=== PATIENT | female | born 1995 | race Caucasian/White ===

== ENCOUNTER 2019-05-04 12:28 | Outpatient (CLI) | payer OTHER, SELFPAY ==
[2019-05-04 12:51] LABS: Basophils Percent Auto 0.4 % (0.2-1.2); Eosinophils Absolute Auto 0.1 K/mm3 (0-0.3); Eosinophils Percent Auto 1.2 % (0-4.4); Hematocrit 43.8 % (37.0-47.0); Hemoglobin 14.4 g/dL (12.0-15.0); Immature Granulocyte Absolute 0.02 K/mm3 (0.00-0.031); Immature Granulocyte Percent A 0.3 % (0-0.5); Lymphocytes Absolute Auto 2.36 K/mm3 (0.9-3.2); Lymphocytes Percent Auto 34.7 % (18.3-44.2); Mean Corpuscular HGB Conc 32.9 g/dl (32-36); Mean Corpuscular Hemoglobin 29.1 pg (26-34); Mean Corpuscular Volume 88.5 fl (80-100); Mean Platelet Volume 10.2 fl (7.4-10.4); Monocytes Absolute Auto 0.3 K/mm3 (0.1-0.6); Monocytes Percent Auto 4.9 % (2.6-8.5); Neutrophils Percent Auto 58.5 % (45.5-73.1); Platelet Count Result 324 k/mm3 (150-375); Red Blood Count 4.95 M/mm3 (4.2-5.4); Red Cell Distribution Width 12.3 % (11.5-14.5); White Blood Count 6.8 K/mm3 (4.5-10.0)
[2019-05-04 13:05] LABS: Alanine Aminotransferase 15 U/L (4-35); Albumin Level 4.5 g/dL (3.5-5.1); Alkaline Phosphatase 77 U/L (38-126); Aspartate Amino Transferase 24 U/L (14-36); Bilirubin,Total 0.6 mg/dL (0.2-1.3); Blood Urea Nitrogen 10 mg/dL (7-17); Calcium 9.3 mg/dL (8.4-10.2); Carbon Dioxide 28 mmol/L (22-30); Chloride 101 mmol/L (98-107); Estimated Glomerular Filt Rate > 60; Glucose 77 mg/dL (65-105); Potassium 3.8 mmol/L (3.4-5.0); Sodium 136 mmol/L (137-145)
== END 2019-05-04 12:29 | disposition home or self-care (01) ==
PROVIDERS: PCP Family Medicine; Visit Provider Family Medicine
DX: R53.83 Other fatigue (principal)
CPT/HCPCS: 36415; 80053; 82607; 84443; 85025

== ENCOUNTER 2019-11-23 07:32 | Outpatient (CLI) | payer OTHER, SELFPAY ==
[2019-11-23 08:04] LABS: Basophils Percent Auto 0.4 % (0.2-1.2); Eosinophils Absolute Auto 0.1 K/mm3 (0-0.3); Eosinophils Percent Auto 0.7 % (0-4.4); Hematocrit 37.4 % (37.0-47.0); Hemoglobin 12.9 g/dL (12.0-15.0); Immature Granulocyte Absolute 0.02 K/mm3 (0.00-0.031); Immature Granulocyte Percent A 0.2 % (0-0.5); Lymphocytes Absolute Auto 2.42 K/mm3 (0.9-3.2); Lymphocytes Percent Auto 29.2 % (18.3-44.2); Mean Corpuscular HGB Conc 34.5 g/dl (32-36); Mean Corpuscular Hemoglobin 29.5 pg (26-34); Mean Corpuscular Volume 85.4 fl (80-100); Mean Platelet Volume 9.9 fl (7.4-10.4); Monocytes Absolute Auto 0.5 K/mm3 (0.1-0.6); Monocytes Percent Auto 5.8 % (2.6-8.5); Neutrophils Absolute Auto 5.3 K/mm3 (1.3-6.7); Neutrophils Percent Auto 63.7 % (45.5-73.1); Platelet Count Result 265 k/mm3 (150-375); Red Blood Count 4.38 M/mm3 (4.2-5.4); Red Cell Distribution Width 12.4 % (11.5-14.5); White Blood Count 8.3 K/mm3 (4.5-10.0)
[2019-11-23 08:58] LABS: HIV 1/2 Ab P24 Ag Result Negative (Negative)
[2019-11-23 09:11] LABS: Hepatitis B Surface Antigen Negative (Negative); Rubella IgG Antibody 66.2 IU/ML
[2019-11-23 09:26] LABS: Hepatitis C Virus Antibody Negative (Negative)
[2019-11-24 10:14] LABS: Rapid Plasma Reagin Non-Reactive (NonReactive)
== END 2019-11-23 07:33 | disposition home or self-care (01) ==
PROVIDERS: PCP Family Medicine; Visit Provider Obstetrics & Gynecology
DX: Z34.90 Encounter for supervision of normal pregnancy, unspecified, unspecified trimester (principal); Z3A.00 Weeks of gestation of pregnancy not specified
CPT/HCPCS: 36415; 85025; 86592; 86703; 86762; 86803; 86850; 86900; 86901; 87340; G0432

== ENCOUNTER 2019-11-24 17:14 | Outpatient (CLI) | payer OTHER, SELFPAY ==
--- NOTE | ~2019-11-24 | US_ITS ---
EXAMINATION: US OB <=14 wk fetus w TV EXAM DATE: 11/24/2019 17:55 INDICATION: For dating and viability. 1st trimester. TECHNIQUE: Pelvic obstetrical transabdominal and transvaginal sonogram was performed by a technologi . There are multiple grayscale and Doppler images available for interpretation. There are no julia ier studies of this gestation for comparison. FINDINGS: Uterus measures 9.9 x 5.7 x 6.7 cm. There is intrauterine gestation sac. pole with heart rate confirmed at 155 beats per minute. The 1.4 cm crown-rump length corresponds to estimated gestational age by ultrasound of 7 weeks 5 days. Yolk sac is identified. There is no sonographic e vidence of subchorionic hemorrhage. Right ovary morphologically normal, left not identified. IMPRESSION: 1. Live intrauterine gestation, age by ultrasound 7 weeks 5 days. Reviewed, dictated and finalized at location B.
== END 2019-11-24 17:15 | disposition home or self-care (01) ==
PROVIDERS: PCP Family Medicine; Visit Provider Obstetrics & Gynecology
DX: O26.841 Uterine size-date discrepancy, first trimester (principal); Z3A.01 Less than 8 weeks gestation of pregnancy
CPT/HCPCS: 76801; 76817

== ENCOUNTER 2020-03-16 12:36 | Outpatient (CLI) | payer MEDICAID, SELFPAY ==
--- NOTE | ~2020-03-16 | US_ITS ---
US OB /maternal detail DATE: 03/16/2020 13:33 INDICATION: Routine annual screening for chromosomal abnormalities TECHNIQUE: Real-time imaging and Doppler analysis COMPARISON: 11/24/2019 obstetrical ultrasound FINDINGS: Live [place] intrauterine gestation, fetus in longitudinal lie, vertex presentation. Plac enta is anterior. There is a subjectively normal amount of amniotic fluid. Nuchal fold appears normal. No cerebral ventriculomegaly. The cerebellum appears normal. facial profile appears normal. The spine appears unremarkable. The diaphragm appears intact. heart rate of 144 bpm. 4 chamber heart. The heart outflow tracts appear normal. Fluid is demonstrated in the stomach and urinary bladder. No evidence of hydronephr osis. Three-vessel umbilical cord with normal appearing insertion at abdominal wall. The extremities are visualized. male external genitalia. Biparietal diameter 6.13 cm; 24 weeks 6 days estimated gestational age Head circumference 22.51 cm; 24 weeks 4 days Abdominal circumference 18.41 cm; 23 weeks 2 days Femur length 3.78 cm; 22 weeks 1 day Composite age by have a foraminal based upon these measurements would be 23 weeks 5 days +/- 1 week 5 days; AZAM would be 07/08/2020, compared to 07/03/2020 by LMP. Estimated weight is 552.9 +/- 82.9 g. Femur length/BPD 61.76, below normal range of 71.0-87.0 Head circumference/abdominal circumference 1.22, slightly above normal range of 1.05, 1.21 Femur length/abdominal director of product marketing was 20.56, within normal range of 20.00-24.00 Femur length/head circumference 16.81, below normal range of 18.84-20.87. IMPRESSION: Normal anatomy screen Reviewed, dictated and finalized at Location A. Reviewed, dictated and finalized at location A. OGRAPHIC EQUIPMENT MECHANIC IMPRESSION: Normal anatomy screen
== END 2020-03-16 12:37 | disposition home or self-care (01) ==
PROVIDERS: PCP Family Medicine; Visit Provider Obstetrics & Gynecology
DX: Z36.0 Encounter for antenatal screening for chromosomal anomalies (principal)
CPT/HCPCS: 76805

== ENCOUNTER 2020-05-03 11:48 | Outpatient (CLI) | payer OTHER, SELFPAY ==
[2020-05-03 18:36] LABS: Hematocrit 35.6 % (37.0-47.0); Hemoglobin 11.7 g/dL (12.0-15.0); Mean Corpuscular HGB Conc 32.9 g/dl (32-36); Mean Corpuscular Hemoglobin 29.4 pg (26-34); Mean Corpuscular Volume 89.4 fl (80-100); Mean Platelet Volume 10.5 fl (7.4-10.4); Platelet Count Result 230 k/mm3 (150-375); Red Blood Count 3.98 M/mm3 (4.2-5.4); Red Cell Distribution Width 13.6 % (11.5-14.5); White Blood Count 10.4 K/mm3 (4.5-10.0)
[2020-05-03 18:50] LABS: Glucose 1 Hour PP 50gm Dose 102 mg/dL
[2020-05-03 19:31] LABS: HIV 1/2 Ab P24 Ag Result Negative (Negative)
== END 2020-05-03 11:49 | disposition home or self-care (01) ==
LOC: ANHBWCLAB 11:53
PROVIDERS: Visit Provider Obstetrics & Gynecology
DX: Z34.90 Encounter for supervision of normal pregnancy, unspecified, unspecified trimester (principal); Z3A.00 Weeks of gestation of pregnancy not specified
CPT/HCPCS: 36415; 82947; 85027; 86703; G0432

== ENCOUNTER 2020-05-15 09:37 | Outpatient (CLI) | payer OTHER, SELFPAY ==
--- NOTE | ~2020-05-15 | US_ITS ---
EXAMINATION: US OB follow up EXAM DATE: 05/15/2020 10:04 INDICATION: growth. 3rd trimester. TECHNIQUE: Pelvic obstetrical transabdominal sonogram was performed by a technologist. There are mu ltiple grayscale and Doppler images available for interpretation. Comparison is made to prior examina tion from 03/16/2020. FINDINGS: There is a single fetus identified in vertex presentation with a heart rate of 141 beats pe r minute. The placenta is located in the anterior position. There is no sonographic evidence of retr oplacental hemorrhage identified. The amniotic fluid index is 10.5 centimeters, which is normal. BIOMETRIC DATA: Biparietal diameter (BPD): 8.0 cm ----------------> 32 weeks 1 day. Head circumference (HC): 29.2 cm ----------------> 32 weeks 1 day. Abdominal circumference (AC): 27.2 cm ----------> 31 weeks 2 days. Femur length (FL): 6.1 cm --------------------------> 31 weeks 5 days. These measurements are concordant. HC/AC ratio is 1.07 (The 5th -- 95th percentile range is 0.6-1.14. Estimated weight is 1790 g +/- 268 g. This is the 9th percentile when the currently reported c linical gestation age 33 weeks 0 days, clinical estimated date of delivery (AZAM-OPE) 07/03/20 is used. estimated gestational age based on measurements from this exam is 31 weeks 6 days, with an est imated date of delivery (AZAM-AUA) 07/11. weight percentile has increased from 3.5% on prior stud y. IMPRESSION: 1. Single fetus in vertex presentation with heart rate 141 beats per minute. 2. Estimated weight of 1790 grams, 9th percentile using the currently reported clinical gestat ion age of 33 weeks 0 days, AZAM(OPE) 07/03. 3. Normal CLAUDIA 10.5 cm. Reviewed, dictated and finalized at location A. IMPRESSION: 1. Single fetus in vertex presentation with heart rate 141 beats per minute. 2. Estimated weight of 1790 grams, 9th percentile using the currently re ported clinical gestation age of 33 weeks 0 days, AZAM(OPE) 07/03. 3. Normal CLAUDIA 10.5 cm.
== END 2020-05-15 09:38 | disposition home or self-care (01) ==
PROVIDERS: Visit Provider Obstetrics & Gynecology
DX: O36.60X0 Maternal care for excessive fetal growth, unspecified trimester, not applicable or unspecified (principal); Z3A.33 33 weeks gestation of pregnancy
CPT/HCPCS: 76816

== ENCOUNTER 2020-06-12 09:50 | Outpatient (CLI) | payer OTHER, SELFPAY ==
--- NOTE | ~2020-06-12 | US_ITS ---
EXAMINATION: US OB follow up DATE: 06/12/2020 10:44 INDICATION: Follow-up growth and amniotic fluid index. TECHNIQUE: Real-time transabdominal obstetric ultrasound. FINDINGS: Ultrasound dated 05/15/2020, 03/16/2020 and 11/24/2019 There is a single living fetus in vertex presentation. The placenta is anterior without placenta pre via. cardiac activity and movement is noted with a heart rate of 161 beats per minute. T he amniotic fluid volume is normal. CLAUDIA measures 9.7 cm (normal range for gestational age is 7.5-24.4 cm). The following biometric data were obtained: BPD: 91mm corresponds to gestational age 36 weeks 6 days. Head circumference: 324mm corresponds to gestational age 36 weeks 4 days. Abdominal circumference: 334mm corresponds to gestational age 37 weeks 2 days. Femur length: 72mm corresponds to gestational age 36 weeks 4 days. Estimated weight: 3084grams +/- 462grams.] IMPRESSION: 1. Single living intrauterine in vertex presentation with an estimated gestational age of 36 weeks 3 days by inititial ultrasound. EDC by initial ultrasound is 07/07/2020. Appropriate interval growth. 2. Normal placenta. Reviewed, dictated and finalized at location B. IMPRESSION: 1. Single living intrauterine in vertex presentation with an estimat ed gestational age of 36 weeks 3 days by inititial ultrasound. EDC by initial u ltrasound is 07/07/2020. Appropriate interval growth. 2. Normal placenta.
== END 2020-06-12 09:51 | disposition home or self-care (01) ==
PROVIDERS: Visit Provider Obstetrics & Gynecology
DX: O36.5990 Maternal care for other known or suspected poor fetal growth, unspecified trimester, not applicable or unspecified (principal); Z3A.36 36 weeks gestation of pregnancy
CPT/HCPCS: 76816

== ENCOUNTER 2020-06-30 | Inpatient (IN) | payer OTHER, SELFPAY ==
[2020-06-30] VITALS (194 sets, daily range): BP systolic 90–139; BP diastolic 49–95; PULSE 32–119; RESP 16–20; TEMP 36.3–37.7; O2SAT 80–100
--- NOTE | 2020-06-30 00:29 | LDADM ---
This patient, Mary Torres, was admitted to Labor/Delivery/Recovery 104 on 06/30/20 at 00:00. Plans for labor, pain management and were discussed with patient. Patient/family oriented to hospital policies and general routines including ID bracelet, bed and alarms, visiting hours, pain management, procedures, bathroom and other care routines, personal items, smoking policy, room service/diet and guest tray routines, infant security routines, and visiting hours. Patient/Family are encouraged to report perceived risks to care and to ask questions if they do not understand what they are told or what they should do. See OBIX for further documentation.
[2020-06-30 00:32] LABS: Basophils Percent Auto 0.4 % (0.2-1.2); Eosinophils Absolute Auto 0.1 K/mm3 (0-0.3); Eosinophils Percent Auto 0.9 % (0-4.4); Hematocrit 34.3 % (37.0-47.0); Lymphocytes Percent Auto 19.6 % (18.3-44.2); Mean Corpuscular HGB Conc 32.1 g/dl (32-36); Mean Corpuscular Hemoglobin 26.8 pg (26-34); Mean Corpuscular Volume 83.5 fl (80-100); Mean Platelet Volume 10.7 fl (7.4-10.4); Monocytes Absolute Auto 0.5 K/mm3 (0.1-0.6); Monocytes Percent Auto 5.6 % (2.6-8.5); Neutrophils Percent Auto 72.5 % (45.5-73.1); Platelet Count Result 227 k/mm3 (150-375); Red Blood Count 4.11 M/mm3 (4.2-5.4); Red Cell Distribution Width 14.7 % (11.5-14.5); White Blood Count 9.7 K/mm3 (4.5-10.0)
[2020-06-30] MEDS: LACTATED RINGERS 1,000 ML 125 ML IV CONT (01:29)
[2020-06-30] MEDS: OXYTOCIN 30 UNITS/NS 500 ML 30 UNITS/500 ML BAG IV CONT (01:30)
--- NOTE | 2020-06-30 06:24 | WPDANESEPP ---
Anes - Eval Pre Procedure Procedure: labor epidural Date/Time: 06/30/20 06:24 Surgeon: adi Preop Diagnosis: pain during labor Pre Op Diagnosis: Induction of Labor Patient Data Age: 25 Gender: F Height: 1.63 m Weight: 79.5 kg Last Vital Signs Temp 36.5 C 06/30/20 03:34 Pulse 86 06/30/20 06:00 Resp 20 06/30/20 03:34 BP 132/83 06/30/20 06:00 Allergies Allergy/AdvReac Type Severity Reaction Status Date / Time No Known Allergies Allergy Verified 06/26/20 09:38 Home Medications Medication Instructions Recorded Confirmed Type docosahexaenoic acid 200 mg capsule 200 mg PO DAILY 11/15/19 06/30/20 History Laboratory Tests 06/30/20 06/30/20 06/30/20 00:25 00:25 00:25 WBC 9.7 K/mm3 K/mm3 (4.5-10.0) RBC 4.11 M/mm3 L M/mm3 (4.2-5.4) Hgb 11.0 g/dL L g/dL (12.0-15.0) Hct 34.3 % L % (37.0-47.0) MCV 83.5 fl fl (80-100) MCH 26.8 pg pg (26-34) MCHC 32.1 g/dl g/dl (32-36) RDW 14.7 % H % (11.5-14.5) Plt Count 227 k/mm3 k/mm3 (150-375) MPV 10.7 fl H fl (7.4-10.4) Immature Gran % (Auto) 1.0 % H % (0-0.5) Neut % (Auto) 72.5 % % (45.5-73.1) Lymph % (Auto) 19.6 % % (18.3-44.2) [place] % (Auto) 5.6 % % (2.6-8.5) Eos % (Auto) 0.9 % % (0-4.4) Baso % (Auto) 0.4 % % (0.2-1.2) Lymph # (Auto) 1.90 K/mm3 K/mm3 (0.9-3.2) [place] # (Auto) 0.5 K/mm3 K/mm3 (0.1-0.6) Eos # (Auto) 0.1 K/mm3 K/mm3 (0-0.3) Baso # (Auto) 0.0 K/mm3 K/mm3 (0.0-0.1) Abs Immat Gran (auto) 0.10 K/mm3 H K/mm3 (0.00-0.031) Absolute Neuts (auto) 7.0 K/mm3 H K/mm3 (1.3-6.7) Absolute Nucleated RBC 0.0 K/mm3 K/mm3 (0.0-0.012) Nucleated RBC % 0.0 % % (0.0-0.2) RPR Pending Blood Type A Positive Antibody Screen Negative Patient hx anesthesia problems: none Family hx anesthesia problems: none PMFSH Past Medical History Medical History (Updated 06/30/20 @ 06:25 by Maggie Iyer CRNA) IBS (irritable bowel syndrome) IUP (intrauterine ), incidental Family History Family History Grandparent Family history of atrial fibrillation History of blood clots grandmother Diabetes mellitus grandmother Acute myocardial infarction grandmother Hypertension grandmother Hypercholesteremia grandmother Cerebrovascular accident grandmother Mother History of blood clots Social History Social History Smoking status: Never smoker Second hand tobacco smoke exposure: No Alcohol intake: never Substance use: never Gender identity (if verbalized by the patient): Female Spiritual care concerns: No Exam Day of Procedure 06/30/20 06:24
[2020-06-30] MEDS: fentaNYL CITRATE INJ (*CRX) 100 MCG/2 ML VIAL IV PUSH (07:40)
--- NOTE | 2020-06-30 08:11 | WPDOBADMIT ---
Obstetrics - Admit Note Admission Note: record reviewed. No pertinent additions to the history and/or any subsequent changes in the physical findings that are not consistent with the expected course of the were found. Additions to the history and/or subsequent changes in the physical findings follow. G1 at 39 weeks for elective induction of labor. Cervix 2/60/-1. AROM with clear fluid and IUPC placed easily. Continue pitocin. GBS negative.
[2020-06-30] MEDS: LACTATED RINGERS 1,000 ML 999 ML IV CONT ×3 (08:13→14:00)
[2020-06-30 12:33] LABS: Rapid Plasma Reagin Non-Reactive (NonReactive)
[2020-06-30] MEDS: ONDANSETRON INJ 4 MG/2 ML VIAL IV PUSH (14:05)
[2020-06-30] MEDS: SODIUM CHLORIDE 0.9% IV 300 ML 600 ML I-UTERINE (16:32)
--- NOTE | 2020-06-30 18:11 | P.PCNOB_ITS ---
OB - Delivery Note Procedure Delivery date: 06/30/20 Procedure: events: Labor Induction Induction method: per pitocin protocol Delivery augmentation: rupture of membranes Delivery monitor: external FHT and internal uterine Route of delivery: Laceration Description: Perineal - 2nd Degree and Vaginal - 1st Degree (right) Delivery repair: vicryl (3-0) Specimen: No Quantitative Blood Loss (ml): 114 Anesthesia type: Local Disposition: floor [place] Baby Date of : 06/30/20 Time of : 17:46 Weeks of gestation at delivery: 39 Infant gender: Male Weight (pounds): 7 Weight (ounces): 12 presentation: vertex position: Right Occiput Anterior Placenta delivery description: Spontaneous cord vessel description: 3 Vessels and Clamped/Cut score one minute: 8 score five minutes: 9
[2020-06-30] MEDS: OXYTOCIN 30 UNITS/NS 500 ML 30 UNITS/500 ML BAG 125 UNITS IV CONT (18:23)
[2020-06-30] MEDS: IBUPROFEN 600 MG TABLET PO (18:48)
[2020-06-30] MEDS: BENZOCAINE 20% AER SPR (*SP) 56 GM CAN 1 SPRAY TOPICAL (18:51)
[2020-06-30] MEDS: WITCH HAZEL 40 PADS 1 PAD TOPICAL (18:51)
--- NOTE | 2020-06-30 20:22 | OBPPTRN ---
Patient transferred to post room #290 via wheelchair. Support person present. Oriented to unit, room, information board, rooming in, admission packet and security measures. Patient verbalizes understanding.
[2020-07-01] VITALS: BP 120/64; PULSE 69; RESP 16; TEMP 36.9; O2SAT 99
[2020-07-01 04:00] VITALS: BP 113/66; PULSE 74; RESP 16; TEMP 36.8; O2SAT 99
[2020-07-01 05:56] LABS: Hematocrit 28.4 % (37.0-47.0); Hemoglobin 9.1 g/dL (12.0-15.0)
[2020-07-01 08:30] VITALS: BP 108/79; PULSE 83; RESP 18; TEMP 36.3
[2020-07-01] MEDS: POLYSACCHARIDE IRON COMPLEX 150 MG CAPSULE PO ×2 (09:46→17:29)
[2020-07-01] MEDS: DOCUSATE SODIUM 100 MG CAPSULE PO ×2 (09:46→17:29)
[2020-07-01] MEDS: IBUPROFEN 600 MG TABLET PO (09:47)
[2020-07-01] MEDS: MULTIVIT/MIN/PREN/FOL AC/IRON TABLET 1 TAB PO (09:47)
[2020-07-01] MEDS: DIBUCAINE 1% OINTMENT 30 GM TUBE 1 APPLIC TOPICAL (09:50)
--- NOTE | 2020-07-01 10:12 | WPDANLDPN2 ---
Anes-Prog Note L&D Date/Time: 07/01/20 10:12 Comfortable throughout: labor and delivery Neuraxial method: epidural Epidural/Spinal procedure site: clean & non-tender Neuro status: Neuro function grossly intact. Cardiovascular status: normal Respiratory status: normal Airway patency: baseline Mental status: baseline Post-Op hydration status: normal Vital Signs: Last Vital Signs Temp 36.3 C L 07/01/20 08:30 Pulse 83 07/01/20 08:30 Resp 18 07/01/20 08:30 BP 108/79 07/01/20 08:30 Pulse Ox 99 07/01/20 04:00 Pain score (VAS): 10 I/O: Intake & Output 06/30/20 07/01/20 07/01/20 23:59 07:59 15:59 Intake Total 1500 Output Total 255 Balance 1245 Post-procedural complaints: none Patient feedback: Patient satisfied with anesthetic care.
--- NOTE | 2020-07-01 11:28 | PM.OBPNVD ---
OB - PN: Subj Subjective Date/time seen: 07/01/20 11:28 Patient comments: pain well controlled, tolerating diet and other (Decreasing lochia.) baby status: doing well and nursing well [place] feeding status: exclusively breast feeding OB - PN: Obj Data Labs CBC & Chem 7: 07/01/20 04:22 Labs: Laboratory Results - last 24 hr 06/30/20 07/01/20 00:25 04:22 Hgb 9.1 L Hct 28.4 L RPR Non-reactive OB - PN A/P Plan day: 1 Plan: routine care Comments: Patient doing well. Continue routine care. Time Spent With Patient Time: Total time spent is greater than 50% in coordination of care (as documented) at patient's floor/unit and/or counseling patient: Exam Psych: Affect: normal affect Other: Abd: fundus firm below umbilicus, nontender Perineum: healing Ext: nontender
[2020-07-01 13:00] VITALS: BP 103/70; PULSE 77; RESP 18; TEMP 36.3
[2020-07-01 16:35] VITALS: BP 112/69; PULSE 86; RESP 18; TEMP 36.9
[2020-07-01 19:52] VITALS: BP 117/76; PULSE 86; RESP 18; TEMP 36.9
--- NOTE | 2020-07-02 04:30 | PC.NURSE ---
07/01/2020 at 2200 Patient viewed the discharge video Mother & Baby Care, The First Two Weeks . Patient was given the opportunity and encouraged to ask questions. Patient verbalized understanding of information shared and has been given the mother/baby guide for home reference.
[2020-07-02 07:55] VITALS: BP 119/78; PULSE 83; RESP 18; TEMP 36.4
--- NOTE | 2020-07-02 09:21 | PM.OBPNVD ---
OB - PN: Subj Subjective Date/time seen: 07/02/20 09:21 Patient comments: pain well controlled, tolerating diet and other (Decreasing lochia.) baby status: doing well and nursing well OB - PN: Obj Data Labs CBC & Chem 7: 07/01/20 04:22 OB - PN A/P Plan day: 2 Plan: discharge home and other Comments: Patient doing well. Follow up 4-6 weeks. Discharge instructions provided. Time Spent With Patient Time: Total time spent is greater than 50% in coordination of care (as documented) at patient's floor/unit and/or counseling patient: Time with patient: less than 15 minutes Exam Const: General: comfortable and no acute distress Eyes: General: appearance normal, both eyes and all related structures Resp: Effort & Inspection: normal respiratory effort Psych: Affect: normal affect Other: Abd: fundus firm below umbilicus, nontender Ext: nontender
--- NOTE | 2020-07-02 09:22 | P.DS_ITS ---
DS: Admitting Diagnosis Admitting Diagnosis Admitting Diagnosis: Medical induction of labor. DS: Discharge Diagnosis Discharge Diagnosis (1) Delivery normal: Code(s): O80 - Encounter for full-term uncomplicated delivery Status: Acute OB - DS: Summary OB Procedures : Ultrasound OB Procedures Intrapartum: Spontaneous Vag Delivery OB Procedures: : None Time Spent with Patient Time attestation: Total time spent providing and/or coordinating discharge services: Exam Const: General: no acute distress Eyes: General: appearance normal, both eyes and all related structures Resp: Effort & Inspection: normal respiratory effort Psych: Affect: normal affect Other: Abd: fundus firm below umbilicus, nontender Perineum: healing Ext: nontender DS: Data Procedures/Treatments: Spontaneous vaginal delivery. Additional Comments Additional comments: Patient admitted for medical induction of labor. She had an uncomplicated vaginal delivery. She did well . Asymptomatic anemia. Iron supplementation. Discharge Plan Discharge Attending physician on discharge: Walt Escobedo Consulting providers: Margot Verde Discharging Clinician: Walt Escobedo Anticipated Discharge Date/Time: 07/02/20 09:18 Patient Disposition: Home, Self-Care Activity: may shower, no straining and pelvic rest Diet: regular Discharge Instructions: Take daily vitamins. May take Tylenol or Motrin for pain. Call for fever, saturating more than a pad an hour, leg pain/redness. Take over the counter SloFe once a day. Routine post vaginal delivery precautions. Patient Instructions: Antibiotic Form Stand Alone Forms: General Discharge Information Follow-up/Referrals: Asha Barajas MD [Physician] - Call for Appointment (Follow up in four to six weeks.) Discharge Medications: Continued DHA 200 mg capsule 200 mg PO DAILY RF: 0 Date of admission: 06/30/20 00:00 Primary Care Provider: PHYSICIAN,COMPUTER SYSTEMS TECHNOLOGY INSTRUCTOR Admitting Provider: Asha Barajas Attending physician on admission: Asha Barajas Condition: Stable
[2020-07-03 08:43] VITALS: BP 114/72; PULSE 88; RESP 20; TEMP 37.1; O2SAT 100
== END 2020-07-02 10:10 | disposition home or self-care (01) | DRG 560 ==
LOC: ANHLDR 00:18 → ANHOB2 07-02 09:21 → ANHLDR 07-04 10:51 → ANHOB2 07-04 10:51
PROVIDERS: Admitting Provider Obstetrics & Gynecology; Visit Provider Obstetrics & Gynecology
DX: O99.62 Diseases of the digestive system complicating childbirth (principal); Z37.0 Single live birth; Z3A.39 39 weeks gestation of pregnancy; K58.9 Irritable bowel syndrome, unspecified; O36.8330 Maternal care for abnormalities of the fetal heart rate or rhythm, third trimester, not applicable or unspecified; O70.1 Second degree perineal laceration during delivery
CPT/HCPCS: 36415; 85014; 85018; 85025; 86592; 86850; 86900; 86901; A9270; J2405; J2590; J2795; J3010; J7030; J7120

== ENCOUNTER 2023-03-19 11:48 | Emergency (ER) | payer SELFPAY ==
--- NOTE | ~2023-03-19 | XR_ITS ---
XR foot RT min 3V DATE: 03/19/2023 12:54 INDICATION: Pain at second through fifth metatarsophalangeal areas TECHNIQUE: 4 views COMPARISON: None FINDINGS: No fracture or dislocation, periosteal reaction or bone destruction. Joint spaces are prese rved. IMPRESSION: Negative Reviewed, dictated and finalized at location B. STROPHE CLAIMS SUPERVISOR IMPRESSION: Negative
[2023-03-19 11:55] VITALS: BP 105/64; PULSE 67; RESP 20; TEMP 36.6; O2SAT 100
--- NOTE | 2023-03-19 12:51 | PC.NURSE ---
Pt denied pain medication or ice for comfort.
--- NOTE | 2023-03-19 13:42 | ED.LOWEXIN ---
HPI - Extremity Injury (Lower) General Chief Complaint: Extremity Injury, Lower Stated Complaint: R foot injury Time Seen by Provider: 03/19/23 12:01 History of Present Illness HPI Narrative: Patient is a 27-year-old female who presents ER with right foot pain. She is dancing earlier this week and then cold her toes under her foot under her body weight. She has had pain with walking. No numbness or tingling. No bruising. Has pain with walking. Related Data Allergies Allergy/AdvReac Type Severity Reaction Status Date / Time No Known Allergies Allergy Verified 07/25/20 10:03 Review of Systems Musculoskeletal: Musculoskeletal: Reports no additional musculoskeletal complaints Integumentary/Breasts: Skin/Breast: Reports system reviewed and no additional complaints, except as docu Neurologic: Reports system reviewed and no additional complaints, except as documented PMFSH Past Medical History Medical History IBS (irritable bowel syndrome) IUP (intrauterine ), incidental Vaginal delivery Family History Family History Grandparent Family history of atrial fibrillation History of blood clots grandmother Diabetes mellitus grandmother Acute myocardial infarction grandmother Hypertension grandmother Hypercholesteremia grandmother Cerebrovascular accident grandmother Mother History of blood clots Social History Social History Smoking status: Never smoker Second hand tobacco smoke exposure: No Alcohol intake: never Substance use: never Living arrangements: with family Occupation/Education: occupation Gender identity (if verbalized by the patient): Female Spiritual care concerns: No Exam Narrative: GENERAL: Well-appearing, well-nourished, and in no acute distress. HEAD: Normocephalic, atraumatic. ENT: Mucous membranes moist. HEART: Regular rate and rhythm. Normal peripheral pulses. EXTREMITIES: Normal range of motion. No edema. Tender palpation over MTPs 2. Through 5 of the right foot. She will not flex her toes due to pain. Pain with passive range of motion of the affected toes as well. Sensation intact. SKIN: Warm, dry, no rash. NEURO: Alert and oriented x3. PSYCH: Normal mood and affect. Course Course Emergency Course: Patient resting comfortably. Given Toradol. Informed of imaging results. Placed in postop shoe for comfort. Discharge. Vital Signs Vital signs: Vital Signs Temperature 97.8 F 03/19/23 11:55 Pulse Rate 67 03/19/23 11:55 Respiratory Rate 20 03/19/23 11:55 Blood Pressure 105/64 03/19/23 11:55 Pulse Oximetry 100 03/19/23 11:55 Oxygen Delivery Room Air 03/19/23 11:55 Temperature 97.6 F 03/19/23 13:54 Pulse Rate 60 03/19/23 13:54 Respiratory Rate 16 03/19/23 13:54 Blood Pressure 105/74 03/19/23 13:54 Pulse Oximetry 100 03/19/23 13:54 Oxygen Delivery Room Air 03/19/23 11:55 MDM - Extremity Injury (Lower) Imaging Data Radiologist's impression: ITS Impressions Foot X-Ray 03/19/23 13:06 IMPRESSION: Negative Discharge Plan Discharge Clinical Impression: Sprain of toe Patient Disposition: Home, Self-Care Condition: Stable Instructions: Sprain (ED) Additional Instructions: Wear the postop shoe for comfort. You may take it off when he can not bear weight without pain. Take naproxen for pain. Return the ER if your foot is cold /flu, you suffered a new injury, or you have additional concerns. Prescriptions: New naproxen 375 mg tablet 375 mg PO BID Qty: 14 0RF Follow-up/Referrals: UNKNOWN,DOCTOR [Primary Care Provider] - 1 Week
[2023-03-19 13:54] VITALS: BP 105/74; PULSE 60; RESP 16; TEMP 36.4; O2SAT 100
== END 2023-03-19 13:55 | disposition home or self-care (01) ==
PROVIDERS: Emergency Provider Emergency Medicine
DX: S93.504A Unspecified sprain of right lesser toe(s), initial encounter (principal); X50.0XXA Overexertion from strenuous movement or load, initial encounter
CPT/HCPCS: 73630; 99283

== ENCOUNTER 2023-08-17 10:23 | Outpatient (CLI) | payer OTHER, SELFPAY ==
--- NOTE | ~2023-08-17 | MR_ITS ---
EXAMINATION: MR foot RT wo con DATE: 08/17/2023 11:34 INDICATION: Right foot pain, swelling and bruising post injury 6 months prior TECHNIQUE: Magnetic resonance imaging (MRI) of the right fore/mid foot was performed without intraven ous contrast. Sequences included sagittal T1-weighted FSE, sagittal fluid sensitive FSE STIR, coronal PD-weighted FS FSE, coronal T1-weighted FSE, axial PD-weighted FS FSE, and axial PD-weighted FSE. COMPARISON: None FINDINGS: Bone alignment is normal. Bone marrow signal is normal with no reactive edema, fracture or pathologic marrow replacing process. Joint spaces are normal with no joint effusions. The Lisfranc ligament com plex as well as the collateral ligament complex at the metatarsophalangeal and interphalangeal joints are normal. The visualized portions of the flexor and extensor tendons are normal. The intrinsic mus culature of the foot is normal. There is a small region of mild edema in the subcutaneous fat overlyi ng the second-fourth metatarsal phalangeal joints and immediately underlying the marker indicating th e region of concern. There is a 1.3 x 1.5 x 0.4 cm region of intermediate T1 and slightly hyperintens e T2 signal replacing the normal fat pad plantar to the head of the fifth metatarsal most likely repr esenting an adventitial bursal or fibrosis. IMPRESSION: 1. Nonspecific mild focal subcutaneous edema dorsal to the second-fourth metatarsophalangeal joints w ith normal appearance to the bones, joint spaces, tendons and stabilizing ligaments. 2. Small adventitial bursa versus fibrosis replacing the fat pad plantar to the head of the fifth met atarsal. Reviewed, dictated and finalized at location A. IMPRESSION: 1. Nonspecific mild focal subcutaneous edema dorsal to the second-fourth metata rsophalangeal joints with normal appearance to the bones, joint spaces, tendons and stabilizing ligaments. 2. Small adventitial bursa versus fibrosis replacing the fat pad plantar to the head of the fifth metatarsal.
== END 2023-08-17 10:24 | disposition home or self-care (01) ==
PROVIDERS: PCP Nurse Practitioner; Visit Provider Nurse Practitioner
DX: M79.671 Pain in right foot (principal)
CPT/HCPCS: 73718